=== PATIENT | female | born 1945 | race Caucasian/White ===

== ENCOUNTER 2018-12-03 17:44 | Emergency (ER) | payer MEDICARE, OTHER ==
--- NOTE | 2018-12-03 19:24 | EDM.PDOC ---
ED HPI GENERAL MEDICAL PROBLEM - General Chief Complaint: Eye Problems Stated Complaint: EYE PAIN Time Seen by Provider: 12/03/18 19:23 Source of Information: Reports: Patient History Limitations: Reports: No Limitations - History of Present Illness INITIAL COMMENTS - FREE TEXT/NARRATIVE: 73 yo present to ER with right eye pain. She received a shot for diabetic retinopathy this AM from Dr. Analisa brink last injection prior to thsi was 1 month ago. pt continues to feel burning and vision continues to be blurry. Right Eye Pain Score (Numeric/FACES): 10 - Related Data Allergies Allergy/AdvReac Type Severity Reaction Status Date / Time cat dander Allergy Shortness Verified 12/03/18 18:30 of Breath nickel Allergy Rash Verified 12/03/18 18:30 Home Meds: Home Meds . [Unable to Verify Home Med List] 12/03/18 [History] Past Medical History HEENT History: Reports: Other (See Below) Other HEENT History: diabetic retanopathy Cardiovascular History: Reports: Afib, Other (See Below) Other Cardiovascular History: paracarditis Musculoskeletal History: Reports: Osteoporosis Neurological History: Reports: Head Trauma Psychiatric History: Reports: Bipolar Endocrine/Metabolic History: Reports: Diabetes, Type I, Hypothyroidism Dermatologic History: Reports: Other (See Below) Other Dermatologic History: foliculitis - Past Surgical History HEENT Surgical History: Reports: Cataract Surgery Cardiovascular Surgical History: Reports: None Endocrine Surgical History: Reports: None Neurological Surgical History: Reports: None Musculoskeletal Surgical History: Reports: None Dermatological Surgical History: Reports: None Social & Family History - Family History Family Medical History: Noncontributory - Tobacco Use Smoking Status *Q: Never Smoker - Caffeine Use Caffeine Use: Reports: Coffee, Soda - Recreational Drug Use Recreational Drug Use: No ED ROS GENERAL - Review of Systems Review Of Systems: See Below Constitutional: Denies: Fever, Chills HEENT: Reports: Eye Discharge, Eye Pain. Denies: Contact Lenses ED EXAM GENERAL W FULL EYE - Physical Exam Exam: See Below Exam Limited By: No Limitations General Appearance: Alert, WD/WN, Mild Distress Eye Exam: Bilateral Eye: EOMI Pupillary Reaction: Bilateral: Brisk Anterior Chamber: Bilateral: Normal Appearance Posterior Chamber: Right: Abnormal Retina, Hemorrhage, Papilledema Ears: Normal External Exam, Normal Canal, Hearing Grossly Normal Respiratory/Chest: No Respiratory Distress, Lungs Clear, Normal Breath Sounds. No: Crackles, Rhonchi, Wheezing Cardiovascular: Regular Rate, Rhythm, No Murmur Course - Vital Signs Last Recorded V/S: Last Vital Signs Temp 35.9 C 12/03/18 18:27 Pulse 77 12/03/18 18:27 Resp 16 12/03/18 18:27 BP 155/91 H 12/03/18 18:27 Pulse Ox 93 L 12/03/18 18:27 - Orders/Labs/Meds Meds: Medications Discontinued Medications Generic Name Dose Route Start Last Admin Trade Name Eloy PRN Reason Stop Dose Admin Proparacaine HCl 1 ml 12/03/18 20:00 12/03/18 20:05 Proparacaine 0.5% Ophth Soln EYERT 12/03/18 20:01 2 drop ONETIME ONE Administration Tramadol HCl 50 mg 12/03/18 19:33 12/03/18 19:50 Ultram PO 12/03/18 19:34 50 mg ONETIME ONE Administration - Re-Assessments/Exams Free Text/Narrative Re-Assessment/Exam: 12/03/18 20:13 litigation manager [employer] from [employer] was contacted. steroid inject utilizes a topical that may cause corneal irritation. after applying topical anesthetic pain resolved. Departure - Departure Time of Disposition: 20:11 Disposition: Home, Self-Care 01 Condition: Good Clinical Impression: Corneal abrasion Qualifiers: Encounter type: initial encounter Laterality: right Qualified Code(s): S05.01XA - Injury of conjunctiva and corneal abrasion without foreign body, right eye, initial encounter - Discharge Information *PRESCRIPTION DRUG MONITORING PROGRAM REVIEWED*: Not Applicable *COPY OF PRESCRIPTION DRUG MONITORING REPORT IN PATIENT JASWINDER: Not Applicable Instructions: Corneal Abrasion Referrals: PCP,None [Primary Care Provider] - Forms: ED Department Discharge Additional Instructions: apply thin ribbon of antibiotic ointment to eye three times daily for the next 3 days may find relief with cool compress to eye 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
[2018-12-03] MEDS ORDERED: traMADol 50 MG Tab PO ONE (19:33)
[2018-12-03] MEDS ORDERED: Proparacaine 0.5% Ophth Soln 15 ML Bottle EYERT ONE (20:00)
== END 2018-12-03 20:17 | disposition home or self-care (01) ==
LOC: JP.ED 17:53
DX: S05.01XA Injury of conjunctiva and corneal abrasion without foreign body, right eye, initial encounter (principal); E10.319 Type 1 diabetes mellitus with unspecified diabetic retinopathy without macular edema; Z91.09 Other allergy status, other than to drugs and biological substances; Z88.8 Allergy status to other drugs, medicaments and biological substances; X58.XXXA Exposure to other specified factors, initial encounter
CPT/HCPCS: 99283; A9270; 99282